=== PATIENT | female | born 1970 | race Caucasian/White ===

== ENCOUNTER 2021-03-30 09:31 | Emergency (ER) | payer OTHER ==
[2021-03-30] MEDS: Sodium Chloride 0.9% 100 ML IV SCH (13:00)
[2021-03-30] MEDS: Iopamidol 755 Mg/ML 100 ML Bottle IV SCH (13:00)
[2021-03-30] MEDS: Sodium Chloride 0.9% 1,000 ML IV SCH (13:27)
== END 2021-03-30 15:45 | disposition home or self-care (01) ==
LOC: JP.ED 09:31
DX: M54.50 Low back pain, unspecified (principal); R10.12 Left upper quadrant pain; R19.00 Intra-abdominal and pelvic swelling, mass and lump, unspecified site; I10 Essential (primary) hypertension; Z79.82 Long term (current) use of aspirin; Z88.1 Allergy status to other antibiotic agents
CPT/HCPCS: 36415; 71260; 74176; 74177; 82150; 82272; 83690; 86140; 99284; 99284-25; J7030; Q9967

== ENCOUNTER 2021-05-05 11:59 | Emergency (ER) | payer OTHER ==
[2021-05-05 13:51] LABS: CORONAVIRUS COVID-19 NAA NEGATIVE (NEGATIVE)
== END 2021-05-05 14:29 | disposition home or self-care (01) ==
LOC: JP.ED 11:59
DX: R05.9 Cough, unspecified (principal); E78.00 Pure hypercholesterolemia, unspecified; I10 Essential (primary) hypertension; Z79.899 Other long term (current) drug therapy; Z88.1 Allergy status to other antibiotic agents; Z20.822 Contact with and (suspected) exposure to COVID-19
CPT/HCPCS: 0241U; 71046; 99283

== ENCOUNTER 2021-05-09 16:28 | Emergency (ER) | payer OTHER ==
[2021-05-09] MEDS ORDERED: fentaNYL 100 MCG/2 ML SDV IVPUSH ONE (16:51)
== END 2021-05-09 18:29 | disposition home or self-care (01) ==
LOC: JP.ED 16:28
DX: S30.1XXA Contusion of abdominal wall, initial encounter (principal); E78.00 Pure hypercholesterolemia, unspecified; I10 Essential (primary) hypertension; Z88.1 Allergy status to other antibiotic agents; Z79.899 Other long term (current) drug therapy
CPT/HCPCS: 71250; 74176; 96374; 99283; 99284-25; J3010